=== PATIENT | female | born 1935 | race Caucasian/White ===

== ENCOUNTER → 2017-06-21 | Outpatient (CLI) | payer MEDICARE ==
--- NOTE | 2017-06-21 14:32 | Diagnostic Imaging Report ---
Ultrasound-guided thyroid biopsy June 21, 2017 Pre-Procedure Diagnosis: Heterogeneous left thyroid Post-procedure Diagnosis:Heterogeneous left thyroid Cloth Shrinker: Lyle Victor Quill Buncher And Sorter: None Sedation: None. 1% lidocaine local anesthesia. Estimate blood loss: <5 mL Blood administered: None Complications: None Implants/Grafts: None Specimen: 25-gauge needle biopsy x 4 Procedure: Informed consent was obtained and the patient positioned supine in the ultrasound suite. A timeout was performed, followed by preliminary ultrasound of the thyroid. The neck was prepped and draped in standard sterile fashion. Using real-time ultrasound guidance a 25-gauge needle was advanced into the thyroid region of interest. An image was stored in the electronic medical record. The sample was submitted to pathology for adequacy review. The procedure was repeated an additional 4 times, using identical technique with image capture for the medical record. At the end of the procedure a sterile dressing was applied. Findings: Heterogeneous left thyroid gland without discrete nodule. Impression: Successful ultrasound-guided left thyroid needle biopsy. This report was generated with voice-recognition technology. Errors in bushing and broach operator can occur. Please interpret accordingly and contact a radiologist if there are any questions regarding the report. Signed by: Dr. Dvaid Victor M.D. on 06/21/2017 2:28 PM
== END ==
LOC: US 12:28
PROVIDERS: ATTEND Otolaryngology
DX: E04.2 Nontoxic multinodular goiter (principal)
CPT/HCPCS: 10022; 76942; 88172; 88173; 88305

== ENCOUNTER → 2018-06-18 | Outpatient (CLI) | payer MEDICARE ==
--- NOTE | 2018-06-18 17:50 | Diagnostic Imaging Report ---
Thyroid ultrasound CPT code: 64581 History: Multiple thyroid nodules Comparison: Thyroid ultrasound biopsy images 06/21/2017 Findings: The thyroid echotexture is normal. Vascularity is normal. The right lobe measures 1.6 x 1.3 x 4.6 cm. The left lobe measures 2.3 x 2.1 x 4.9 cm. The isthmus measures 0.2 cm. Nodules (measurements are AP, transverse, craniocaudal): Right Lobe: * Well-defined, hypoechoic solid nodule in the interpolar region measures 8 x 11 x 10 mm with a central coarse calcification. * Solid, hypoechoic nodule in the interpolar region with well-defined margins measures 5 x 8 x 5 mm. No echogenic foci. * Solid and cystic nodule in the interpolar region measures 4 x 5 x 4 mm. Margins are well-defined. No echogenic foci. * Colloid cyst measures 2 x 3 mm. Left Lobe: * Solid, isoechoic to hyperechoic nodule in the interpolar region measures 2.1 x 1.9 x 3.1 cm. This was biopsied. It contains a few coarse calcifications. No change in echotexture compared to previous exam. Measurements of the nodule were not obtained before biopsy. * Curvilinear calcification in the lower pole measures 5 x 4 x 5 mm. * A colloid cyst measures 3 x 3 x 3 mm. Isthmus: No cystic mass or discrete solid nodule identified. Lymph Nodes: No cervical lymphadenopathy. IMPRESSION: 1. Solid nodules in the right lobe correspond to thyroid RADS 4. Annual surveillance is recommended to confirm stability. 2. Solid nodule in the left lobe is stable in echotexture and corresponds to thyroid RADS 3. Please correlate with biopsy findings. ACR glossary of thyroid rads TI-RADS 1: Benign lesion. TI-RADS 2: Not suspicious. TI-RADS 3: Mildly suspicious (recommend FNA if greater than or equal to 2.5 cm; follow-up at 1, 3, and 5 years if greater than or equal to 1.5 cm) TI-RADS 4: Moderately Suspicious (recommend FNA if greater than or equal to 1.5 cm; follow-up at 1, 2, 3, and 5 years) TI-RADS 5: Highly suspicious (recommend FNA if greater than or equal to 10 mm) TI-RADS 6: Biopsy-proven malignancy Signed by: Dr. Kelli Singh MD on 06/18/2018 5:47 PM
== END ==
LOC: US 14:08
PROVIDERS: ATTEND Otolaryngology
DX: E04.2 Nontoxic multinodular goiter (principal)
CPT/HCPCS: 76536

== ENCOUNTER → 2019-05-27 | Outpatient (CLI) | payer MEDICARE ==
--- NOTE | 2019-05-28 08:54 | Diagnostic Imaging Report ---
Thyroid ultrasound CPT code: 87022 History: Multiple thyroid nodules Comparison: Thyroid ultrasound 06/18/2018, 06/21/2017 Findings: The thyroid echotexture is heterogeneous. Vascularity is normal. The right lobe measures 4.4 x 2.0 x 1.1 cm. The left lobe measures 4.9 x 2.4 x 2.1 cm. The isthmus measures 0.2 cm. Nodules (measurements are AP, transverse, craniocaudal): Right Lobe: 1. Hypoechoic predominantly solid 6 x 4 x 4mm nodule 2. Anechoic mid pole 3mm nodule 3. Hypoechoic 8 x 10 x 10mm well circumscribed nodule with coarse central calcification (8 x 11 x 10mm previously) 4. Hypoechoic 9 x 5 x 7mm nodule (previously 5 x 8 x 5mm) Left Lobe: 1. Isoechoic predominantly solid 2.9 x 1.7 x 2.2 cm nodule (previously 3.1 x 1.9 x 2.1 cm) 2. Curvilinear calcification measures 4 x 3 x 4mm (previously 5 x 4 x 5mm) Isthmus: No cystic mass or discrete solid nodule identified. Lymph Nodes: No cervical lymph nodes are identified. Parathyroids: Not visualized. IMPRESSION: Bilateral thyroid nodules as above, essentially unchanged from 2018. The most suspicious nodules are the hypoechoic 8 x 10 x 10mm nodule with coarse central calcification on the right (TR4) and the isoechoic 2.9cm nodule on the left (TR3). Based on ACR guidelines, FNA is recommended of the left thyroid nodule. ACR glossary of thyroid rads TI-RADS 1: No focal lesion. TI-RADS 2: Not suspicious. TI-RADS 3: Mildly suspicious (recommend FNA is greater than or equal to 2.5 cm; follow-up at 1, 3, and 5 years if greater than or equal to 1.5 cm) TI-RADS 4: Moderately Suspicious (recommend FNA is greater than or equal to 1.5 cm; follow-up at 1, 2, 3, and 5 years) TI-RADS 5: Highly suspicious (recommend FNA is greater than or equal to 10 mm) TI-RADS 6: Biopsy-proven malignancy Signed by: Haim Lucero MD on 05/28/2019 8:51 AM
== END ==
LOC: US 14:11
PROVIDERS: ATTEND Otolaryngology
DX: E04.2 Nontoxic multinodular goiter (principal)
CPT/HCPCS: 76536

== ENCOUNTER → 2020-05-14 | Outpatient (CLI) | payer MEDICARE ==
--- NOTE | 2020-05-14 16:28 | Diagnostic Imaging Report ---
Thyroid ultrasound. History: Multiple nodules Comparison: 05/27/2019, 06/18/2018 and 06/21/2017. Discussion: Transverse and longitudinal images of the thyroid were obtained demonstrating normal echogenicity of the thyroid. The right thyroid lobe measures 4.9 x 1.9 x 1.2 cm. Hypoechoic well-circumscribed nodule at coarse central calcification measuring 0.9 x 0.7 x 0.9 cm, previously measured 0.8 x 1.0 x 1.0 cm. Heterogeneous hypoechoic well-circumscribed nodule without macrocalcification measuring 0.6 x 0.3 x 0.3 cm, previously measured 0.6 x 0.4 x 0.4 cm. Hypoechoic also describes solid nodule measuring 0.9 x 0.6 x 0.7 cm, previously measured 0.9 x 0.5 x 0.7 cm. The left lobe measures 5.4 x 3.1 x 2.1 cm. Heterogeneously isoechoic predominantly solid well-circumscribed nodule without macrocalcification measuring 2.8 x 2.3 x 2.2 cm, previously measured 2.9 x 1.7 x 2.2 cm. The isthmus measures 2 mm, within normal limits. IMPRESSION: No significant change in bilateral thyroid nodules when compared to 05/27/19 and 06/18/2018. As described previously the TI-RADS 3 nodule within the left thyroid lobe meets criteria for FNA, already performed on 06/21/2017. As described previously the TI-RADS 4 nodule within the right thyroid lobe should be followed at 1, 2, 3 and 5 year intervals from baseline thyroid ultrasound. Signed by: Jonathan Posadas MD on 05/14/2020 4:25 PM
== END ==
LOC: US 15:32
PROVIDERS: ATTEND Otolaryngology
DX: E04.2 Nontoxic multinodular goiter (principal)
CPT/HCPCS: 76536